=== PATIENT | male | born 1975 | race Caucasian/White ===

== ENCOUNTER → 2023-12-09 14:45 | Outpatient (REF) | payer OTHER, SELFPAY | LOC: RAD 14:45 | PROVIDERS: ATTENDING PHYSICIAN Nurse Practitioner | DX: R74.8 Abnormal levels of other serum enzymes (principal); R19.7 Diarrhea, unspecified; R10.10 Upper abdominal pain, unspecified | CPT/HCPCS: 74177; Q9967 ==

== ENCOUNTER → 2023-12-30 07:59 | Outpatient (REF) | payer OTHER, SELFPAY | LOC: RAD 07:59 | PROVIDERS: ATTENDING PHYSICIAN Internal Medicine Gastroenterology; FAMILY PHYSICIAN Nurse Practitioner | DX: K21.9 Gastro-esophageal reflux disease without esophagitis (principal) | CPT/HCPCS: 78227; A9537; J2805 ==

== ENCOUNTER → 2024-03-15 14:47 | Outpatient (REF) | payer OTHER, SELFPAY | LOC: RAD 14:47 | PROVIDERS: ATTENDING PHYSICIAN Nurse Practitioner | DX: R05.1 Acute cough (principal) | CPT/HCPCS: 71046 ==

== ENCOUNTER → 2024-07-25 15:29 | Outpatient (REF) | payer OTHER, SELFPAY | LOC: MRI 3T 15:29 | PROVIDERS: ATTENDING PHYSICIAN Student in an Organized Health Care Education/Training Program; FAMILY PHYSICIAN Nurse Practitioner | DX: M75.81 Other shoulder lesions, right shoulder (principal); M25.511 Pain in right shoulder | CPT/HCPCS: 73221 ==

== ENCOUNTER 2024-08-29 06:18 | Day surgery (SDC) | payer OTHER, SELFPAY ==
[2024-08-29] VITALS (10 sets, daily range): BP systolic 113–155; BP diastolic 68–100; BMI 30.7
[2024-08-29] MEDS: CELEBREX 200 MG PO (08:51)
== END 2024-08-29 15:11 | disposition home or self-care (01) ==
LOC: SDS 06:18
PROVIDERS: ATTENDING PHYSICIAN Specialist
PROC: 0RNJ4ZZ Release Right Shoulder Joint, Percutaneous Endoscopic Approach (ICD-10-PCS; 2024-08-29)
PROC: 0RBJ4ZZ Excision of Right Shoulder Joint, Percutaneous Endoscopic Approach (ICD-10-PCS; 2024-08-29)
DX: M75.121 Complete rotator cuff tear or rupture of right shoulder, not specified as traumatic (principal)
CPT/HCPCS: 29827; 29826; 29823

== ENCOUNTER → 2024-12-07 16:41 | Outpatient (REF) | payer OTHER, SELFPAY | LOC: HWRAD 16:41 | PROVIDERS: ATTENDING PHYSICIAN Nurse Practitioner | DX: R61 Generalized hyperhidrosis (principal) | CPT/HCPCS: 71046 ==

== ENCOUNTER → 2024-12-21 15:11 | Outpatient (REF) | payer OTHER, SELFPAY ==
[2024-12-21 17:49] LABS: Monotest Negative (Negative)
[2024-12-23 22:35] LABS: EBV-EA (D) Ab IgG 6.5 U/mL (0.0-10.9); EBV-VCA IgM Antibodies <10.0 U/mL (0.0-43.9)
== END ==
LOC: REG 15:11
PROVIDERS: ATTENDING PHYSICIAN Internal Medicine
DX: R61 Generalized hyperhidrosis (principal)
CPT/HCPCS: 36415; 86308; 86663; 86664; 86665

== ENCOUNTER → 2024-12-27 16:14 | Outpatient (REF) | payer OTHER, SELFPAY | LOC: RAD 16:14 | PROVIDERS: ATTENDING PHYSICIAN Internal Medicine Gastroenterology; FAMILY PHYSICIAN Nurse Practitioner | DX: R63.4 Abnormal weight loss (principal) | CPT/HCPCS: 71260; 74177; Q9967 ==

== ENCOUNTER → 2025-10-27 08:24 | Outpatient (REF) | payer OTHER, SELFPAY ==
[2025-10-27 08:58] LABS: Hematocrit 46.5 % (39.0-52.0); Hemoglobin 16.1 g/dL (13.0-18.0); Mean Corp Hgb Conc. 34.6 g/dL (33.0-37.0); Mean Corpuscular Volume 83.3 fL (80.0-94.0); Nucleated Red Blood Cells % 0 % (-); Platelet Count 236 10^3/uL (130-400); Red Cell Dist. Width 12.3 % (11.5-14.5)
[2025-10-27 09:08] LABS: Urine Character Clear (Clear)
[2025-10-27 09:29] LABS: ALT (SGPT) 16 U/L (0-50); AST (SGOT) 20 U/L (17-59); Albumin 4.5 g/dl (3.5-5.0); Alkaline Phosphatase 55 U/L (38-126); Blood Urea Nitrogen 12 mg/dl (9-20); Calcium 9.0 mg/dl (8.4-10.2); Carbon Dioxide 29 mmol/L (22-30); Chloride 98 mmol/L (98-107); Glucose 91 mg/dl (70-99); Potassium 4.0 mmol/L (3.5-5.1); Sodium 135 mmol/L (135-145); Total Protein 7.0 g/dl (6.3-8.2); eGFR > 60.00
[2025-10-27 09:31] LABS: C-Reactive Protein < 5.00 mg/L (0.0-10.00)
[2025-10-27 09:32] LABS: Urine Red Blood Cell 0-2 /HPF (0-2); Urine Squamous Cell None seen /LPF (Few); Urine White Cell 0-2 /HPF (0-5)
[2025-10-27 10:02] LABS: TSH 2.32 uIU/ml (0.47-4.68)
[2025-10-29 12:25] LABS: Lyme Antibody Screen, EIA Negative (Negative)
== END ==
LOC: REG 08:24
PROVIDERS: ATTENDING PHYSICIAN Nurse Practitioner
DX: R61 Generalized hyperhidrosis (principal); E34.9 Endocrine disorder, unspecified
CPT/HCPCS: 36415; 80053; 81003; 81015; 84403; 84443; 85025; 85652; 86140; 86480; 86618; 87086